=== PATIENT | female | born 1990 | race Two or more races ===

== ENCOUNTER 2020-06-04 09:47 | Emergency (ER) | payer OTHER ==
[~2020-06-04] VITALS: Ht 160 cm; Wt 52.2 kg
[2020-06-04 09:52] VITALS: BP_SYST 136
[2020-06-04 11:17] LABS: BASOPHILS % (AUTO) 0.6 % (0.0-2.0); EOSINOPHILS % (AUTO) 0.2 % (0.0-4.0); HEMATOCRIT 36.2 % (36-48); HEMOGLOBIN 12.2 g/dL (12.0-16.0); LYMPHOCYTES # (AUTO) 0.5 K/uL (1.0-5.5); LYMPHOCYTES % (AUTO) 11.8 % (20.5-51.5); MEAN CORPUSCULAR HEMOGLOBIN 30 pg (27-31); MEAN CORPUSCULAR HGB CONC 34 % (32-36); MEAN CORPUSCULAR VOLUME 89 fL (79.0-98.0); MONOCYTES # (AUTO) 0.4 K/uL (0.0-1.0); MONOCYTES % (AUTO) 9.5 % (1.7-9.3); NEUTROPHILS # (AUTO) 3.3 K/uL (1.8-7.7); NEUTROPHILS % (AUTO) 77.9 % (40.0-70.0); PLATELET COUNT (AUTO) 155 K/uL (130-430); RED BLOOD CELL COUNT(AUTO) 4.04 MIL/uL (4.2-6.2); RED CELL DISTRIBUTION WIDTH 13.3 % (9.0-15.0); WHITE BLOOD COUNT (AUTO) 4.2 K/uL (4.8-10.8)
[2020-06-04 11:27] LABS: CALCIUM 8.9 mg/dL (8.4-11.0); CREATININE 0.84 mg/dL (0.55-1.30); POTASSIUM 3.6 mmol/L (3.5-5.1)
[2020-06-04 11:33] LABS: BILIRUBIN,URINE 1+ (NEGATIVE); CLARITY/URINE CLEAR (CLEAR); COLOR,URINE YELLOW (YELLOW); GLUCOSE,URINE NEGATIVE (NEGATIVE); KETONES,URINE NEGATIVE (NEGATIVE); LEUKOCYTE ESTERASE ,URINE 2+ (NEGATIVE); NITRITE, URINE NEGATIVE (NEGATIVE); PH,URINE 5.5 (5.0-8.0); PROTEIN URINE TRACE (NEGATIVE); UROBILINOGEN,URINE 0.2 (0.2-1.0)
[2020-06-04 11:33] LABS: ALBUMIN 3.9 g/dL (3.4-4.8); TOTAL BILIRUBIN 0.4 mg/dL (0.0-1.0)
[2020-06-04 11:47] LABS: STREPTOCOCCUS A SCREEN (RAPID) NEGATIVE (NEGATIVE)
[2020-06-04 12:00] LABS: INFLUENZA A&B ANTIGEN SCREEN NEGATIVE FOR A & B (NEGATIVE)
[2020-06-04 12:01] LABS: ERYTHROCYTE SEDIMENTATION RATE 80 MM/HR (0-20)
[2020-06-04 12:02] LABS: BLOOD, URINE TRACE (NEGATIVE)
[2020-06-04 12:25] LABS: BACTERIA,URINE FEW /HPF (None Seen)
[2020-06-04] MEDS ORDERED: NACL 0.9% 2,000 ML IV ONE (12:30)
[2020-06-04] MEDS ORDERED: cefTRIAXone 1 GM VIAL IM ONE (12:30)
[2020-06-04] MEDS ORDERED: cefTRIAXone 1 GM in D5W 50 ML IV ONE (12:45)
[2020-06-04] MEDS ORDERED: methylPREDNISolone SOD SUCC/PF 62.5 MG/ML VIAL IVP ONE (13:00)
[2020-06-04 15:04] VITALS: BP_SYST 123
== END 2020-06-04 15:12 | disposition home or self-care (01) ==
LOC: SED 09:47
DX: B34.9 Viral infection, unspecified (principal); N10 Acute pyelonephritis; Z88.8 Allergy status to other drugs, medicaments and biological substances; Z20.822 Contact with and (suspected) exposure to COVID-19
CPT/HCPCS: 36415; 71045; 80053; 81000; 83605; 85025; 85651; 86140; 86308; 86403; 86710; 87040; 87081; 87086; 87426; 96365; 96372; 96375; 99284; J0696; J2930; J7030